=== PATIENT | female | born 1955 | race Native Hawaiian/Other Pacific Islander ===

== ENCOUNTER 2017-04-26 10:48 | Outpatient (CLI) | payer BC | END 2017-04-26 19:23 | disposition home or self-care (01) | LOC: MAMMO 10:48 | DX: Z12.31 Encounter for screening mammogram for malignant neoplasm of breast (principal) ==

== ENCOUNTER 2018-04-29 11:13 | Outpatient (CLI) | payer BC | END 2018-04-29 22:26 | disposition home or self-care (01) | LOC: MAMMO 11:13 | DX: Z12.31 Encounter for screening mammogram for malignant neoplasm of breast (principal) ==

== ENCOUNTER 2019-05-01 10:43 | Outpatient (CLI) | payer BC | END 2019-05-01 19:25 | disposition home or self-care (01) | LOC: MAMMO 10:43 | DX: Z12.31 Encounter for screening mammogram for malignant neoplasm of breast (principal) ==

== ENCOUNTER 2020-06-28 10:19 | Outpatient (CLI) | payer BC, OTHER | END 2020-06-28 23:19 | disposition home or self-care (01) | LOC: MAMMO 10:19 | PROVIDERS: ATTEND Internal Medicine | DX: Z12.31 Encounter for screening mammogram for malignant neoplasm of breast (principal) ==

== ENCOUNTER 2021-06-30 09:03 | Outpatient (CLI) | payer OTHER | END 2021-06-30 20:26 | disposition home or self-care (01) | LOC: MAMMO 09:03 | PROVIDERS: ATTEND Specialist | DX: Z12.31 Encounter for screening mammogram for malignant neoplasm of breast (principal) ==

== ENCOUNTER 2022-09-05 10:17 | Outpatient (CLI) | payer OTHER | END 2022-09-05 19:21 | disposition home or self-care (01) | LOC: MAMMO 10:17 | PROVIDERS: ATTEND Specialist | DX: Z12.31 Encounter for screening mammogram for malignant neoplasm of breast (principal) ==